=== PATIENT | female | born 1945 | race African-American/Black ===

== ENCOUNTER 2021-06-08 18:55 | Inpatient (IN) | payer MEDICARE, BC ==
[~2021-06-08] VITALS: Ht 170.2 cm; Wt 59.6 kg
[2021-06-08 19:53] LABS: Eosinophils # (auto) 0.1 10 ^3/uL (0-0.8); Mean Corpuscular Hgb Conc. 34.2 g/dL (32.0-36.0)
[2021-06-08 19:55] LABS: Basophils # (auto) 0.1 10 ^3/uL (0-0.2); Basophils % (auto) 0.5 % (0.0-2.0); Hematocrit 31.1 % (36.0-46.0); Hemoglobin 10.6 g/dL (12.2-16.2); Lymphocytes # (auto) 1.7 10 ^3/uL (0.4-5.4); Lymphocytes % (auto) 14.9 % (10.0-50.0); Mean Corpuscular Hemoglobin 26.9 pg (28.0-32.0); Mean Corpuscular Volume 78.5 fL (80.0-100.0); Monocytes # (auto) 0.6 10 ^3/uL (0-1.3); Neutrophils # (auto) 8.8 10 ^3/uL (1.6-8.6); Neutrophils % (auto) 78.6 % (37.0-80.0); Red Blood Cells 3.96 10^6/uL (4.0-5.20); Red Cell Distribution Width 14.8 % (11.8-14.3); White Blood Cell 11.2 10^3/uL (4.4-10.8)
[2021-06-08 20:07] LABS: Albumin 2.8 g/dL (3.4-5.0); BUN/Creatinine Ratio 3.7; Calcium 9.3 mg/dL (8.5-10.1); Magnesium 2.6 mg/dL (1.6-2.6); Potassium 3.3 mmol/L (3.5-5.1)
[2021-06-08 20:15] LABS: Bilirubin, Total 0.4 mg/dL (0.2-1.0); Total Protein 6.6 g/dL (6.4-8.2)
[2021-06-08] MEDS ORDERED: SODIUM CHLORIDE 0.9% 1,000 ML IVB ONE (21:15)
[2021-06-08] MEDS ORDERED: ONDANSETRON HCL 4 MG/2 ML VIAL IV ONE (21:15)
[2021-06-08] MEDS ORDERED: POTASSIUM CHL 20 Meq TABLET PO ONE (22:30)
[2021-06-08] MEDS ORDERED: ACETAMINOPHEN 325 MG TAB PO PRN (22:30)
[2021-06-08 22:59] LABS: INR 0.97 (0.9-1.15); Partial Thromboplastin Time 24.5 sec (23.0-31.2)
[2021-06-09 05:00] VITALS: BP 116/70
[2021-06-09 05:55] LABS: Basophils # (auto) 0 10 ^3/uL (0-0.2); Basophils % (auto) 0.3 % (0.0-2.0); Eosinophils # (auto) 0.2 10 ^3/uL (0-0.8); Eosinophils % (auto) 2.3 % (0.0-7.0); Hematocrit 26.3 % (36.0-46.0); Hemoglobin 9.3 g/dL (12.2-16.2); Lymphocytes # (auto) 2.7 10 ^3/uL (0.4-5.4); Lymphocytes % (auto) 26.3 % (10.0-50.0); Mean Corpuscular Hemoglobin 27.5 pg (28.0-32.0); Mean Corpuscular Hgb Conc. 35.2 g/dL (32.0-36.0); Mean Corpuscular Volume 78.2 fL (80.0-100.0); Monocytes # (auto) 0.8 10 ^3/uL (0-1.3); Monocytes % (auto) 7.5 % (0.0-12.0); Neutrophils # (auto) 6.6 10 ^3/uL (1.6-8.6); Neutrophils % (auto) 63.6 % (37.0-80.0); Red Blood Cells 3.37 10^6/uL (4.0-5.20); Red Cell Distribution Width 14.5 % (11.8-14.3); White Blood Cell 10.4 10^3/uL (4.4-10.8)
[2021-06-09] MEDS ORDERED: metroNIDAZOLE 500MG/100ML 100 ML IV SCH (06:00)
[2021-06-09 06:19] LABS: Albumin 2.4 g/dL (3.4-5.0); Calcium 9.1 mg/dL (8.5-10.1); Potassium 3.6 mmol/L (3.5-5.1)
[2021-06-09 06:21] LABS: BUN/Creatinine Ratio 3.9
[2021-06-09 06:24] LABS: Bilirubin, Total 0.4 mg/dL (0.2-1.0); Total Protein 5.8 g/dL (6.4-8.2)
[2021-06-09 09:00] VITALS: BP 98/54
[2021-06-09] MEDS: APIXABAN 2.5 MG TAB PO SCH ×2 (10:13→22:02)
[2021-06-09] MEDS: CARVEDILOL 3.125 MG TAB PO SCH ×2 (10:14→22:05)
[2021-06-09] MEDS: amLODIPine BESYLATE 5 MG TAB PO SCH (10:14)
[2021-06-09] MEDS: PANTOPRAZOLE 40 MG TAB PO SCH (10:14)
[2021-06-09] MEDS ORDERED: levoFLOXacin 250MG 50 ML IV SCH (10:30)
[2021-06-09] MEDS ORDERED: levoFLOXacin 500MG 100 ML IV ONE (11:00)
[2021-06-09] MEDS: SUCRALFATE 1 GM/10 ML ORAL SUSP PO SCH ×3 (11:21→22:02)
[2021-06-09 12:31] VITALS: BP 104/60
[2021-06-09 12:32] LABS: Urine Bacteria NONE SEEN /hpf (None Seen); Urine Blood Negative /uL (Negative); Urine Specific Gravity 1.015 (1.001-1.035); Urine WBC 10 /hpf (0 - 5)
[2021-06-09] MEDS: Ensure HIGH Protein Chocolate 8oz Bottle PO SCH ×2 (13:00→17:33)
[2021-06-09] MEDS: ONDANSETRON HCL 4 MG/2 ML VIAL IV PRN ×2 (13:16→20:15)
[2021-06-09] MEDS: HYDROcodone-ACET 5/325MG TAB PO PRN ×2 (13:16→20:15)
[2021-06-09] MEDS: metroNIDAZOLE 500MG/100ML 100 ML IV SCH ×2 (13:16→22:02)
[2021-06-09 16:54] VITALS: BP 117/57
[2021-06-09] MEDS ORDERED: DOCU100C10 PO (19:04)
[2021-06-09] MEDS ORDERED: CINA30TA14 PO (19:04)
[2021-06-09] MEDS ORDERED: PANT40TA2 PO (19:04)
[2021-06-09] MEDS ORDERED: CITA10TA8 PO (19:04)
[2021-06-09] MEDS ORDERED: EZET10TA22 PO (19:04)
[2021-06-09] MEDS ORDERED: CARV6.2551 PO (19:04)
[2021-06-09] MEDS ORDERED: APIX2.5T PO (19:04)
[2021-06-09] MEDS ORDERED: DRON400T PO (19:04)
[2021-06-09] MEDS ORDERED: BEMP1TAB PO (19:04)
[2021-06-09] MEDS ORDERED: CALC0.5C PO (19:04)
[2021-06-09] MEDS ORDERED: AMLO-496 PO (19:04)
[2021-06-09] MEDS ORDERED: NALO1TAB PO (19:04)
[2021-06-09] MEDS ORDERED: HYDR-4798 PO (19:04)
[2021-06-09 20:00] VITALS: BP 108/63
[2021-06-09 22:00] VITALS: BP 107/62
[2021-06-09] MEDS: ATORVASTATIN 20 MG TAB PO SCH (22:02)
[2021-06-10 05:00] VITALS: BP 100/55
[2021-06-10 05:08] LABS: Basophils # (auto) 0 10 ^3/uL (0-0.2); Basophils % (auto) 0.4 % (0.0-2.0); Eosinophils # (auto) 0.3 10 ^3/uL (0-0.8); Eosinophils % (auto) 3.2 % (0.0-7.0); Hematocrit 23.8 % (36.0-46.0); Hemoglobin 8.5 g/dL (12.2-16.2); Lymphocytes # (auto) 2.5 10 ^3/uL (0.4-5.4); Lymphocytes % (auto) 29.7 % (10.0-50.0); Mean Corpuscular Hemoglobin 27.8 pg (28.0-32.0); Mean Corpuscular Hgb Conc. 35.5 g/dL (32.0-36.0); Mean Corpuscular Volume 78.3 fL (80.0-100.0); Monocytes # (auto) 0.7 10 ^3/uL (0-1.3); Neutrophils % (auto) 58.7 % (37.0-80.0); Red Blood Cells 3.04 10^6/uL (4.0-5.20); Red Cell Distribution Width 14.8 % (11.8-14.3); White Blood Cell 8.5 10^3/uL (4.4-10.8)
[2021-06-10 05:29] LABS: Albumin 2.3 g/dL (3.4-5.0); BUN/Creatinine Ratio 4.2; Calcium 8.7 mg/dL (8.5-10.1); Potassium 3.6 mmol/L (3.5-5.1)
[2021-06-10 05:32] LABS: Bilirubin, Total 0.4 mg/dL (0.2-1.0); Total Protein 5.5 g/dL (6.4-8.2)
[2021-06-10] MEDS: metroNIDAZOLE 500MG/100ML 100 ML IV SCH ×3 (05:46→21:13)
[2021-06-10] MEDS: SUCRALFATE 1 GM/10 ML ORAL SUSP PO SCH ×4 (06:44→21:13)
[2021-06-10 08:55] VITALS: BP 127/83
[2021-06-10] MEDS: Ensure HIGH Protein Chocolate 8oz Bottle PO SCH ×3 (09:36→17:59)
[2021-06-10] MEDS: levoFLOXacin 250MG 50 ML IV SCH (09:36)
[2021-06-10] MEDS: APIXABAN 2.5 MG TAB PO SCH ×2 (09:37→21:13)
[2021-06-10] MEDS: CARVEDILOL 3.125 MG TAB PO SCH ×2 (09:37→21:14)
[2021-06-10] MEDS: PANTOPRAZOLE 40 MG TAB PO SCH ×2 (09:38→21:14)
[2021-06-10] MEDS: amLODIPine BESYLATE 5 MG TAB PO SCH (09:39)
[2021-06-10] MEDS: ONDANSETRON HCL 4 MG/2 ML VIAL IV PRN ×2 (09:40→16:17)
[2021-06-10] MEDS: HYDROcodone-ACET 5/325MG TAB PO PRN ×3 (09:40→21:15)
[2021-06-10 12:38] VITALS: BP 131/72
[2021-06-10] MEDS ORDERED: LIDOCAINE 1% HCL (LOCAL ANESTH.) INJ 20ML MDV ONE (12:43)
[2021-06-10 16:40] VITALS: BP 124/63
[2021-06-10] MEDS: ATORVASTATIN 20 MG TAB PO SCH (21:14)
[2021-06-10 22:00] VITALS: BP 102/55
[2021-06-10] MEDS: TEMAZEPAM 15 MG CAP PO PRN (22:44)
[2021-06-11 05:00] VITALS: BP 105/62
[2021-06-11 05:28] LABS: Basophils # (auto) 0 10 ^3/uL (0-0.2); Basophils % (auto) 0.5 % (0.0-2.0); Eosinophils # (auto) 0.3 10 ^3/uL (0-0.8); Eosinophils % (auto) 3.5 % (0.0-7.0); Hematocrit 23.8 % (36.0-46.0); Hemoglobin 8.2 g/dL (12.2-16.2); Lymphocytes # (auto) 2.3 10 ^3/uL (0.4-5.4); Lymphocytes % (auto) 32.3 % (10.0-50.0); Mean Corpuscular Hemoglobin 27.2 pg (28.0-32.0); Mean Corpuscular Hgb Conc. 34.3 g/dL (32.0-36.0); Mean Corpuscular Volume 79.3 fL (80.0-100.0); Monocytes # (auto) 0.6 10 ^3/uL (0-1.3); Monocytes % (auto) 7.8 % (0.0-12.0); Neutrophils % (auto) 55.9 % (37.0-80.0); Nucleated Red Blood Cells % 0.1 %; Red Cell Distribution Width 14.8 % (11.8-14.3); White Blood Cell 7.2 10^3/uL (4.4-10.8)
[2021-06-11] MEDS: SUCRALFATE 1 GM/10 ML ORAL SUSP PO SCH ×4 (05:37→22:28)
[2021-06-11] MEDS: metroNIDAZOLE 500MG/100ML 100 ML IV SCH ×3 (05:37→22:27)
[2021-06-11 05:43] LABS: Potassium 3.6 mmol/L (3.5-5.1)
[2021-06-11 06:11] LABS: Albumin 1.9 g/dL (3.4-5.0); BUN/Creatinine Ratio 4.6; Bilirubin, Total 0.3 mg/dL (0.2-1.0); Calcium 8.5 mg/dL (8.5-10.1); Total Protein 5.3 g/dL (6.4-8.2)
[2021-06-11] MEDS ORDERED: SODIUM CHL 0.9% 1000 ML BAG XX ONE (07:00)
[2021-06-11] MEDS: Ensure HIGH Protein Chocolate 8oz Bottle PO SCH ×3 (08:00→18:18)
[2021-06-11 09:00] VITALS: BP 106/61
[2021-06-11] MEDS: PANTOPRAZOLE 40 MG TAB PO SCH ×2 (09:57→22:29)
[2021-06-11] MEDS: CARVEDILOL 3.125 MG TAB PO SCH ×2 (09:57→22:00)
[2021-06-11] MEDS: amLODIPine BESYLATE 5 MG TAB PO SCH (09:57)
[2021-06-11] MEDS: APIXABAN 2.5 MG TAB PO SCH ×2 (11:21→22:28)
[2021-06-11] MEDS: HYDROcodone-ACET 5/325MG TAB PO PRN ×2 (12:58→20:30)
[2021-06-11 13:00] VITALS: BP 138/70
[2021-06-11 17:00] VITALS: BP 122/72
[2021-06-11] MEDS ORDERED: EPOETIN ALFA-EPBX 4,000 UNIT/ML VIAL SC ONE (21:00)
[2021-06-11 22:00] VITALS: BP 124/59
[2021-06-11] MEDS: ATORVASTATIN 20 MG TAB PO SCH (22:28)
[2021-06-12] MEDS: TEMAZEPAM 15 MG CAP PO PRN ×2 (00:36→23:45)
[2021-06-12 05:00] VITALS: BP 107/60
[2021-06-12] MEDS: SUCRALFATE 1 GM/10 ML ORAL SUSP PO SCH ×4 (06:37→21:53)
[2021-06-12] MEDS: metroNIDAZOLE 500MG/100ML 100 ML IV SCH ×3 (06:37→21:52)
[2021-06-12] MEDS: Ensure HIGH Protein Chocolate 8oz Bottle PO SCH ×3 (08:00→17:54)
[2021-06-12] MEDS: PANTOPRAZOLE 40 MG TAB PO SCH ×2 (08:44→21:55)
[2021-06-12] MEDS: APIXABAN 2.5 MG TAB PO SCH ×2 (08:44→21:55)
[2021-06-12] MEDS: amLODIPine BESYLATE 5 MG TAB PO SCH (08:44)
[2021-06-12] MEDS: CARVEDILOL 3.125 MG TAB PO SCH ×2 (08:44→21:54)
[2021-06-12] MEDS: levoFLOXacin 250MG 50 ML IV SCH (08:45)
[2021-06-12 09:00] VITALS: BP 121/63
[2021-06-12 09:19] LABS: Basophils # (auto) 0 10 ^3/uL (0-0.2); Basophils % (auto) 0.5 % (0.0-2.0); Eosinophils # (auto) 0.2 10 ^3/uL (0-0.8); Lymphocytes # (auto) 1.6 10 ^3/uL (0.4-5.4); Monocytes # (auto) 0.7 10 ^3/uL (0-1.3)
[2021-06-12 09:20] LABS: Eosinophils % (auto) 2.7 % (0.0-7.0); Hematocrit 24.7 % (36.0-46.0); Hemoglobin 8.3 g/dL (12.2-16.2); Lymphocytes % (auto) 24.8 % (10.0-50.0); Mean Corpuscular Hemoglobin 26.6 pg (28.0-32.0); Mean Corpuscular Hgb Conc. 33.7 g/dL (32.0-36.0); Monocytes % (auto) 10.9 % (0.0-12.0); Neutrophils % (auto) 61.1 % (37.0-80.0); Red Blood Cells 3.12 10^6/uL (4.0-5.20); Red Cell Distribution Width 14.6 % (11.8-14.3); White Blood Cell 6.5 10^3/uL (4.4-10.8)
[2021-06-12 09:32] LABS: Albumin 1.8 g/dL (3.4-5.0); Potassium 3.4 mmol/L (3.5-5.1)
[2021-06-12 09:36] LABS: BUN/Creatinine Ratio 3.5; Bilirubin, Total 0.3 mg/dL (0.2-1.0); Total Protein 5.2 g/dL (6.4-8.2)
[2021-06-12] MEDS ORDERED: POTASSIUM EFFERVESENT TAB 25 MEQ PO ONE (11:45)
[2021-06-12 12:56] VITALS: BP 115/77
[2021-06-12] MEDS: HYDROcodone-ACET 5/325MG TAB PO PRN ×2 (16:34→22:52)
[2021-06-12 16:51] VITALS: BP 108/69
[2021-06-12] MEDS: ATORVASTATIN 20 MG TAB PO SCH (21:55)
[2021-06-12 22:00] VITALS: BP 114/65
[2021-06-13] MEDS: HYDROcodone-ACET 5/325MG TAB PO PRN ×2 (04:58→22:11)
[2021-06-13 05:00] VITALS: BP 127/60
[2021-06-13 06:13] LABS: Basophils # (auto) 0 10 ^3/uL (0-0.2); Basophils % (auto) 0.6 % (0.0-2.0); Eosinophils # (auto) 0.3 10 ^3/uL (0-0.8); Eosinophils % (auto) 3.1 % (0.0-7.0); Hematocrit 26.2 % (36.0-46.0); Lymphocytes # (auto) 2.3 10 ^3/uL (0.4-5.4); Lymphocytes % (auto) 27.8 % (10.0-50.0); Mean Corpuscular Hemoglobin 27.2 pg (28.0-32.0); Mean Corpuscular Hgb Conc. 34.2 g/dL (32.0-36.0); Mean Corpuscular Volume 79.6 fL (80.0-100.0); Monocytes # (auto) 0.9 10 ^3/uL (0-1.3); Monocytes % (auto) 10.7 % (0.0-12.0); Neutrophils # (auto) 4.7 10 ^3/uL (1.6-8.6); Neutrophils % (auto) 57.8 % (37.0-80.0); White Blood Cell 8.1 10^3/uL (4.4-10.8)
[2021-06-13] MEDS: metroNIDAZOLE 500MG/100ML 100 ML IV SCH (06:20)
[2021-06-13 06:26] LABS: BUN/Creatinine Ratio 3.9; Calcium 8.7 mg/dL (8.5-10.1); Potassium 3.6 mmol/L (3.5-5.1)
[2021-06-13] MEDS: SUCRALFATE 1 GM/10 ML ORAL SUSP PO SCH ×4 (07:14→21:59)
[2021-06-13] MEDS: Ensure HIGH Protein Chocolate 8oz Bottle PO SCH ×3 (08:00→18:17)
[2021-06-13 09:00] VITALS: BP 129/57
[2021-06-13] MEDS: ONDANSETRON HCL 4 MG/2 ML VIAL IV PRN (09:46)
[2021-06-13] MEDS: CARVEDILOL 3.125 MG TAB PO SCH ×2 (09:48→22:00)
[2021-06-13] MEDS: amLODIPine BESYLATE 5 MG TAB PO SCH (09:48)
[2021-06-13] MEDS: PANTOPRAZOLE 40 MG TAB PO SCH ×2 (09:48→22:00)
[2021-06-13] MEDS: APIXABAN 2.5 MG TAB PO SCH ×2 (09:48→22:00)
[2021-06-13] MEDS ORDERED: CITALOPRAM HYDROBR 20 MG TAB PO ONE (11:30)
[2021-06-13 12:30] VITALS: BP 140/64
[2021-06-13 17:00] VITALS: BP 130/71
[2021-06-13] MEDS: ATORVASTATIN 20 MG TAB PO SCH (22:00)
[2021-06-13 22:16] VITALS: BP 137/73
[2021-06-13] MEDS: TEMAZEPAM 15 MG CAP PO PRN (23:35)
[2021-06-14 05:18] VITALS: BP 130/72
[2021-06-14] MEDS: SUCRALFATE 1 GM/10 ML ORAL SUSP PO SCH ×4 (06:24→22:10)
[2021-06-14 06:36] LABS: Basophils # (auto) 0.1 10 ^3/uL (0-0.2); Basophils % (auto) 0.7 % (0.0-2.0); Eosinophils # (auto) 0.2 10 ^3/uL (0-0.8); Eosinophils % (auto) 3.2 % (0.0-7.0); Hematocrit 25.9 % (36.0-46.0); Hemoglobin 8.8 g/dL (12.2-16.2); Lymphocytes # (auto) 2.4 10 ^3/uL (0.4-5.4); Lymphocytes % (auto) 31.4 % (10.0-50.0); Mean Corpuscular Hemoglobin 27.4 pg (28.0-32.0); Mean Corpuscular Hgb Conc. 34.2 g/dL (32.0-36.0); Mean Corpuscular Volume 80.3 fL (80.0-100.0); Monocytes # (auto) 0.7 10 ^3/uL (0-1.3); Monocytes % (auto) 8.5 % (0.0-12.0); Neutrophils # (auto) 4.4 10 ^3/uL (1.6-8.6); Neutrophils % (auto) 56.2 % (37.0-80.0); Nucleated Red Blood Cells % 0.1 %; Red Blood Cells 3.22 10^6/uL (4.0-5.20); Red Cell Distribution Width 15.5 % (11.8-14.3); White Blood Cell 7.8 10^3/uL (4.4-10.8)
[2021-06-14] MEDS ORDERED: SODIUM CHL 0.9% 1000 ML BAG XX ONE (07:00)
[2021-06-14 09:00] VITALS: BP 123/72
[2021-06-14] MEDS: levoFLOXacin 250MG 50 ML IV SCH (09:10)
[2021-06-14] MEDS: PANTOPRAZOLE 40 MG TAB PO SCH (09:10)
[2021-06-14] MEDS: amLODIPine BESYLATE 5 MG TAB PO SCH (09:11)
[2021-06-14] MEDS: APIXABAN 2.5 MG TAB PO SCH (09:11)
[2021-06-14] MEDS: CITALOPRAM HYDROBR 20 MG TAB PO SCH (09:11)
[2021-06-14] MEDS: CARVEDILOL 3.125 MG TAB PO SCH ×2 (09:11→22:11)
[2021-06-14] MEDS: Ensure HIGH Protein Chocolate 8oz Bottle PO SCH ×3 (09:12→18:40)
[2021-06-14] MEDS: ONDANSETRON HCL 4 MG/2 ML VIAL IV PRN (09:34)
[2021-06-14] MEDS ORDERED: PANTOPRAZOLE 40 MG/10 ML VIAL INJ IV ONE (11:45)
[2021-06-14] MEDS: METOCLOPRAMIDE HCL 5MG/ml INJ 2ml VIAL IV SCH ×3 (11:57→22:09)
[2021-06-14 12:30] VITALS: BP 120/64
[2021-06-14 17:00] VITALS: BP 131/53
[2021-06-14] MEDS ORDERED: EPOETIN ALFA-EPBX 4,000 UNIT/ML VIAL SC ONE (21:00)
[2021-06-14 22:00] VITALS: BP 125/63
[2021-06-14] MEDS: ATORVASTATIN 20 MG TAB PO SCH (22:10)
[2021-06-14] MEDS: HYDROcodone-ACET 5/325MG TAB PO PRN (22:10)
[2021-06-14] MEDS: TEMAZEPAM 15 MG CAP PO PRN (23:26)
[2021-06-15 05:00] VITALS: BP 132/68
[2021-06-15] MEDS: METOCLOPRAMIDE HCL 5MG/ml INJ 2ml VIAL IV SCH (07:18)
[2021-06-15] MEDS: SUCRALFATE 1 GM/10 ML ORAL SUSP PO SCH ×4 (07:18→21:51)
[2021-06-15] MEDS: PANTOPRAZOLE 40 MG/10 ML VIAL INJ IV SCH (08:35)
[2021-06-15] MEDS: CITALOPRAM HYDROBR 20 MG TAB PO SCH (08:36)
[2021-06-15] MEDS: amLODIPine BESYLATE 5 MG TAB PO SCH (08:36)
[2021-06-15] MEDS: Ensure HIGH Protein Chocolate 8oz Bottle PO SCH ×3 (08:39→17:27)
[2021-06-15] MEDS: CARVEDILOL 3.125 MG TAB PO SCH ×2 (08:39→21:52)
[2021-06-15 09:00] VITALS: BP 132/75
[2021-06-15 12:49] VITALS: BP 128/64
[2021-06-15] MEDS: METOCLOPRAMIDE HCL 10 MG TAB PO SCH ×2 (13:45→21:53)
[2021-06-15 17:23] VITALS: BP 101/42
[2021-06-15] MEDS: ATORVASTATIN 20 MG TAB PO SCH (21:52)
[2021-06-15] MEDS: HYDROcodone-ACET 5/325MG TAB PO PRN (21:53)
[2021-06-15 22:00] VITALS: BP 124/70
[2021-06-16 05:00] VITALS: BP 129/70
[2021-06-16] MEDS: METOCLOPRAMIDE HCL 10 MG TAB PO SCH (06:06)
[2021-06-16] MEDS: SUCRALFATE 1 GM/10 ML ORAL SUSP PO SCH ×4 (06:06→22:00)
[2021-06-16 06:46] LABS: Basophils # (auto) 0.1 10 ^3/uL (0-0.2); Basophils % (auto) 0.7 % (0.0-2.0); Eosinophils # (auto) 0.3 10 ^3/uL (0-0.8); Eosinophils % (auto) 3.3 % (0.0-7.0); Hematocrit 27.7 % (36.0-46.0); Hemoglobin 9.5 g/dL (12.2-16.2); Lymphocytes # (auto) 2.6 10 ^3/uL (0.4-5.4); Lymphocytes % (auto) 30.9 % (10.0-50.0); Mean Corpuscular Hemoglobin 27.6 pg (28.0-32.0); Mean Corpuscular Hgb Conc. 34.2 g/dL (32.0-36.0); Mean Corpuscular Volume 80.6 fL (80.0-100.0); Monocytes # (auto) 0.8 10 ^3/uL (0-1.3); Monocytes % (auto) 8.9 % (0.0-12.0); Neutrophils # (auto) 4.8 10 ^3/uL (1.6-8.6); Neutrophils % (auto) 56.2 % (37.0-80.0); Nucleated Red Blood Cells % 0.1 %; Red Blood Cells 3.43 10^6/uL (4.0-5.20); Red Cell Distribution Width 15.3 % (11.8-14.3); White Blood Cell 8.5 10^3/uL (4.4-10.8)
[2021-06-16] MEDS ORDERED: SODIUM CHL 0.9% 1000 ML BAG XX ONE (07:00)
[2021-06-16] MEDS: Ensure HIGH Protein Chocolate 8oz Bottle PO SCH ×3 (08:47→18:07)
[2021-06-16 09:00] VITALS: BP 130/71
[2021-06-16] MEDS: amLODIPine BESYLATE 5 MG TAB PO SCH (10:00)
[2021-06-16] MEDS: CARVEDILOL 3.125 MG TAB PO SCH ×2 (10:00→22:00)
[2021-06-16] MEDS: levoFLOXacin 250MG 50 ML IV SCH (10:12)
[2021-06-16] MEDS: CITALOPRAM HYDROBR 20 MG TAB PO SCH (10:13)
[2021-06-16] MEDS: PANTOPRAZOLE 40 MG/10 ML VIAL INJ IV SCH (10:13)
[2021-06-16 13:00] VITALS: BP 146/66
[2021-06-16] MEDS: METOCLOPRAMIDE HCL 5MG/ml INJ 2ml VIAL IV SCH ×2 (16:24→22:25)
[2021-06-16 17:00] VITALS: BP 136/71
[2021-06-16] MEDS ORDERED: EPOETIN ALFA-EPBX 4,000 UNIT/ML VIAL SC ONE (21:00)
[2021-06-16 22:00] VITALS: BP 126/79
[2021-06-16] MEDS: ATORVASTATIN 20 MG TAB PO SCH (22:25)
[2021-06-16] MEDS: HYDROcodone-ACET 5/325MG TAB PO PRN (23:22)
[2021-06-17] MEDS: TEMAZEPAM 15 MG CAP PO PRN (01:06)
[2021-06-17 05:10] VITALS: BP 123/71
[2021-06-17] MEDS: METOCLOPRAMIDE HCL 5MG/ml INJ 2ml VIAL IV SCH (06:33)
[2021-06-17] MEDS: SUCRALFATE 1 GM/10 ML ORAL SUSP PO SCH ×4 (06:34→23:08)
[2021-06-17] MEDS ORDERED: LIDOCAINE VISCOUS 2% 15ML UD ONE (08:16)
[2021-06-17] MEDS ORDERED: MIDAZOLAM HCL 5 MG/ML-1ML VIAL ONE (08:17)
[2021-06-17] MEDS ORDERED: diphenhdrAMINE HCL 50 MG/1 ML VL ONE (08:17)
[2021-06-17] MEDS ORDERED: fentaNYL CITRATE 100 MCG/2 ML VL ONE (08:17)
[2021-06-17] MEDS: Ensure HIGH Protein Chocolate 8oz Bottle PO SCH ×3 (08:41→18:19)
[2021-06-17 09:00] VITALS: BP 145/90
[2021-06-17 10:54] VITALS: BP 130/78
[2021-06-17] MEDS: CITALOPRAM HYDROBR 20 MG TAB PO SCH (10:57)
[2021-06-17] MEDS: amLODIPine BESYLATE 5 MG TAB PO SCH (10:58)
[2021-06-17] MEDS: PANTOPRAZOLE 40 MG/10 ML VIAL INJ IV SCH (10:58)
[2021-06-17] MEDS: CARVEDILOL 3.125 MG TAB PO SCH ×2 (10:59→22:00)
[2021-06-17 13:00] VITALS: BP 132/80
[2021-06-17] MEDS: METOCLOPRAMIDE HCL 10 MG TAB PO SCH ×2 (16:54→23:09)
[2021-06-17 17:00] VITALS: BP 128/66
[2021-06-17] MEDS: HYDROcodone-ACET 5/325MG TAB PO PRN (20:50)
[2021-06-17 22:00] VITALS: BP 133/69
[2021-06-17] MEDS: APIXABAN 2.5 MG TAB PO SCH (23:08)
[2021-06-17] MEDS: ATORVASTATIN 20 MG TAB PO SCH (23:09)
[2021-06-18 05:00] VITALS: BP 134/65
[2021-06-18] MEDS: METOCLOPRAMIDE HCL 10 MG TAB PO SCH ×4 (06:49→21:05)
[2021-06-18] MEDS: SUCRALFATE 1 GM/10 ML ORAL SUSP PO SCH ×5 (06:49→21:05)
[2021-06-18 08:00] VITALS: BP 135/82
[2021-06-18] MEDS: Ensure HIGH Protein Chocolate 8oz Bottle PO SCH ×3 (08:00→17:49)
[2021-06-18 09:00] VITALS: BP 135/82
[2021-06-18] MEDS: CITALOPRAM HYDROBR 20 MG TAB PO SCH (09:40)
[2021-06-18] MEDS: levoFLOXacin 250MG 50 ML IV SCH (09:46)
[2021-06-18] MEDS: CARVEDILOL 3.125 MG TAB PO SCH ×2 (09:49→21:20)
[2021-06-18] MEDS: PANTOPRAZOLE 40 MG TAB PO SCH (09:50)
[2021-06-18] MEDS: amLODIPine BESYLATE 5 MG TAB PO SCH (09:50)
[2021-06-18] MEDS: APIXABAN 2.5 MG TAB PO SCH ×2 (09:50→21:05)
[2021-06-18 13:00] VITALS: BP 122/75
[2021-06-18 17:00] VITALS: BP 111/75
[2021-06-18] MEDS: HYDROcodone-ACET 5/325MG TAB PO PRN (19:45)
[2021-06-18] MEDS ORDERED: EPOETIN ALFA-EPBX 4,000 UNIT/ML VIAL IV ONE (21:00)
[2021-06-18] MEDS: ATORVASTATIN 20 MG TAB PO SCH (21:06)
[2021-06-18 22:00] VITALS: BP_SYST 116; BP_SYST 119; BP_DIAS 69; BP_DIAS 70
[2021-06-18] MEDS: TEMAZEPAM 15 MG CAP PO PRN (23:38)
[2021-06-19 05:00] VITALS: BP 124/68
[2021-06-19 05:37] LABS: Basophils # (auto) 0.1 10 ^3/uL (0-0.2); Basophils % (auto) 0.8 % (0.0-2.0); Eosinophils # (auto) 0.3 10 ^3/uL (0-0.8); Eosinophils % (auto) 3.2 % (0.0-7.0); Hematocrit 27.2 % (36.0-46.0); Hemoglobin 9.3 g/dL (12.2-16.2); Lymphocytes # (auto) 2.3 10 ^3/uL (0.4-5.4); Lymphocytes % (auto) 28.5 % (10.0-50.0); Mean Corpuscular Hemoglobin 27.8 pg (28.0-32.0); Mean Corpuscular Hgb Conc. 34.1 g/dL (32.0-36.0); Mean Corpuscular Volume 81.6 fL (80.0-100.0); Monocytes # (auto) 0.8 10 ^3/uL (0-1.3); Monocytes % (auto) 9.7 % (0.0-12.0); Neutrophils # (auto) 4.7 10 ^3/uL (1.6-8.6); Neutrophils % (auto) 57.8 % (37.0-80.0); Red Blood Cells 3.33 10^6/uL (4.0-5.20); Red Cell Distribution Width 16.5 % (11.8-14.3); White Blood Cell 8.2 10^3/uL (4.4-10.8)
[2021-06-19 06:02] LABS: Potassium 3.6 mmol/L (3.5-5.1)
[2021-06-19] MEDS: METOCLOPRAMIDE HCL 10 MG TAB PO SCH ×4 (06:06→22:00)
[2021-06-19] MEDS: SUCRALFATE 1 GM/10 ML ORAL SUSP PO SCH ×4 (06:06→22:00)
[2021-06-19 06:20] LABS: BUN/Creatinine Ratio 3.7; Calcium 8.7 mg/dL (8.5-10.1)
[2021-06-19] MEDS: Ensure HIGH Protein Chocolate 8oz Bottle PO SCH ×3 (08:00→18:00)
[2021-06-19] MEDS: APIXABAN 2.5 MG TAB PO SCH ×2 (08:40→22:00)
[2021-06-19] MEDS: PANTOPRAZOLE 40 MG TAB PO SCH (08:40)
[2021-06-19] MEDS: CITALOPRAM HYDROBR 20 MG TAB PO SCH (08:40)
[2021-06-19] MEDS: CARVEDILOL 3.125 MG TAB PO SCH ×2 (08:53→22:00)
[2021-06-19] MEDS: amLODIPine BESYLATE 5 MG TAB PO SCH (08:53)
[2021-06-19 09:00] VITALS: BP 129/68
[2021-06-19 13:00] VITALS: BP 114/70
[2021-06-19 17:00] VITALS: BP 119/76
[2021-06-19 20:00] VITALS: BP 134/65
[2021-06-19 22:00] VITALS: BP 134/65
[2021-06-19] MEDS: ATORVASTATIN 20 MG TAB PO SCH (22:00)
[2021-06-19] MEDS: TEMAZEPAM 15 MG CAP PO PRN (22:30)
[2021-06-20 05:00] VITALS: BP 98/51
[2021-06-20] MEDS: METOCLOPRAMIDE HCL 10 MG TAB PO SCH ×3 (05:56→16:44)
[2021-06-20] MEDS: SUCRALFATE 1 GM/10 ML ORAL SUSP PO SCH ×3 (05:56→16:44)
[2021-06-20 06:01] LABS: Basophils # (auto) 0.1 10 ^3/uL (0-0.2); Basophils % (auto) 0.6 % (0.0-2.0); Eosinophils # (auto) 0.3 10 ^3/uL (0-0.8); Eosinophils % (auto) 3.6 % (0.0-7.0); Hematocrit 26.5 % (36.0-46.0); Lymphocytes # (auto) 2.5 10 ^3/uL (0.4-5.4); Lymphocytes % (auto) 27.8 % (10.0-50.0); Mean Corpuscular Hemoglobin 27.7 pg (28.0-32.0); Mean Corpuscular Hgb Conc. 34.1 g/dL (32.0-36.0); Mean Corpuscular Volume 81.2 fL (80.0-100.0); Monocytes # (auto) 0.9 10 ^3/uL (0-1.3); Neutrophils # (auto) 5.2 10 ^3/uL (1.6-8.6); Red Blood Cells 3.26 10^6/uL (4.0-5.20); Red Cell Distribution Width 16.5 % (11.8-14.3); White Blood Cell 9.1 10^3/uL (4.4-10.8)
[2021-06-20 06:23] LABS: Potassium 3.4 mmol/L (3.5-5.1)
[2021-06-20 06:36] LABS: BUN/Creatinine Ratio 3.8; Calcium 8.4 mg/dL (8.5-10.1)
[2021-06-20 06:39] LABS: Bilirubin, Total 0.2 mg/dL (0.2-1.0); Total Protein 5.2 g/dL (6.4-8.2)
[2021-06-20 08:00] VITALS: BP 134/65
[2021-06-20] MEDS: Ensure HIGH Protein Chocolate 8oz Bottle PO SCH ×3 (08:00→18:20)
[2021-06-20 09:00] VITALS: BP 136/59
[2021-06-20] MEDS: CITALOPRAM HYDROBR 20 MG TAB PO SCH (09:20)
[2021-06-20] MEDS: CARVEDILOL 3.125 MG TAB PO SCH (09:20)
[2021-06-20] MEDS: levoFLOXacin 250MG 50 ML IV SCH (09:20)
[2021-06-20] MEDS: PANTOPRAZOLE 40 MG TAB PO SCH (09:21)
[2021-06-20] MEDS: APIXABAN 2.5 MG TAB PO SCH (09:21)
[2021-06-20] MEDS: amLODIPine BESYLATE 5 MG TAB PO SCH (09:21)
[2021-06-20] MEDS: HYDROcodone-ACET 5/325MG TAB PO PRN (09:22)
[2021-06-20 13:00] VITALS: BP 124/56
[2021-06-21] MEDS ORDERED: SODIUM CHL 0.9% 1000 ML BAG XX ONE (07:00)
[2021-06-21] MEDS ORDERED: EPOETIN ALFA-EPBX 4,000 UNIT/ML VIAL SC ONE (21:00)
== END 2021-06-20 19:10 | disposition home or self-care (01) | DRG 356 ==
LOC: ER 18:56 → OVERFLOW 22:20 → WEST WING 23:41
PROVIDERS: ADMIT Nurse Practitioner; ATTEND Internal Medicine
PROC: 0W9F0ZZ Drainage of Abdominal Wall, Open Approach (ICD-10-PCS; principal; 2021-06-11)
PROC: 5A1D70Z Performance of Urinary Filtration, Intermittent, Less than 6 Hours Per Day (ICD-10-PCS; 2021-06-11)
PROC: 5A1D70Z Performance of Urinary Filtration, Intermittent, Less than 6 Hours Per Day (ICD-10-PCS; 2021-06-14)
PROC: 5A1D70Z Performance of Urinary Filtration, Intermittent, Less than 6 Hours Per Day (ICD-10-PCS; 2021-06-16)
PROC: 0DJ08ZZ Inspection of Upper Intestinal Tract, Via Natural or Artificial Opening Endoscopic (ICD-10-PCS; 2021-06-17)
PROC: 5A1D70Z Performance of Urinary Filtration, Intermittent, Less than 6 Hours Per Day (ICD-10-PCS; 2021-06-18)
DX: K29.80 Duodenitis without bleeding (principal); N18.6 End stage renal disease; L02.211 Cutaneous abscess of abdominal wall; E87.1 Hypo-osmolality and hyponatremia; I12.0 Hypertensive chronic kidney disease with stage 5 chronic kidney disease or end stage renal disease; D68.69 Other thrombophilia; E44.1 Mild protein-calorie malnutrition; K29.70 Gastritis, unspecified, without bleeding; K31.84 Gastroparesis; E11.43 Type 2 diabetes mellitus with diabetic autonomic (poly)neuropathy; I48.91 Unspecified atrial fibrillation; E87.6 Hypokalemia; D63.1 Anemia in chronic kidney disease; N20.0 Calculus of kidney; D72.829 Elevated white blood cell count, unspecified; R12 Heartburn; Z20.822 Contact with and (suspected) exposure to COVID-19; E78.5 Hyperlipidemia, unspecified; E11.22 Type 2 diabetes mellitus with diabetic chronic kidney disease; F32.9 Major depressive disorder, single episode, unspecified; J43.8 Other emphysema; Z79.01 Long term (current) use of anticoagulants; Z68.21 Body mass index [BMI] 21.0-21.9, adult; Z79.899 Other long term (current) drug therapy; Z82.49 Family history of ischemic heart disease and other diseases of the circulatory system; Z83.3 Family history of diabetes mellitus; Z88.0 Allergy status to penicillin; Y92.89 Other specified places as the place of occurrence of the external cause; Z99.2 Dependence on renal dialysis
CPT/HCPCS: 36415; 43235; 71045; 74176; 80048; 80053; 81001; 82150; 83036; 83690; 83735; 84443; 85025; 85610; 85730; 86850; 86900; 86901; 87040; 87070; 87075; 87081; 87086; 87205; 87426; 90935; 93005; 96374; 97110; 97116; 97530; C9113; G0378; J1642; J1956; J2001; J2250; J2405; J3490

== ENCOUNTER 2021-07-29 13:13 | Inpatient (IN) | payer MEDICARE, BC ==
[~2021-07-29] VITALS: Ht 170.2 cm; Wt 54.1 kg
[~2021-07-29 13:13] MED LIST: AMLO-496 PO; APIX2.5T PO; BEMP1TAB PO; CALC0.5C PO; CARV6.2551 PO; CINA30TA3 PO; CITA10TA8 PO; DOCU100C10 PO; DRON400T PO; EZET10TA22 PO; HYDR-4798 PO; NALO1TAB PO; PANT40TA2 PO
[2021-07-29 14:18] LABS: Basophils # (auto) 0.1 10 ^3/uL (0-0.2); Eosinophils # (auto) 0 10 ^3/uL (0-0.8); Eosinophils % (auto) 0.2 % (0.0-7.0); Hemoglobin 10.3 g/dL (12.2-16.2); Neutrophils # (auto) 11.3 10 ^3/uL (1.6-8.6); White Blood Cell 13.6 10^3/uL (4.4-10.8)
[2021-07-29 14:20] LABS: Basophils % (auto) 0.5 % (0.0-2.0); Hematocrit 31.5 % (36.0-46.0); Lymphocytes # (auto) 1.4 10 ^3/uL (0.4-5.4); Mean Corpuscular Hemoglobin 26.2 pg (28.0-32.0); Mean Corpuscular Hgb Conc. 32.7 g/dL (32.0-36.0); Mean Corpuscular Volume 80.1 fL (80.0-100.0); Monocytes # (auto) 0.8 10 ^3/uL (0-1.3); Monocytes % (auto) 5.6 % (0.0-12.0); Neutrophils % (auto) 83.7 % (37.0-80.0); Red Blood Cells 3.93 10^6/uL (4.0-5.20); Red Cell Distribution Width 16.6 % (11.8-14.3)
[2021-07-29 14:36] LABS: Albumin 3.4 g/dL (3.4-5.0); Anion Gap 13 (5-15); Blood Urea Nitrogen 25 mg/dL (7-18); Calcium 10.1 mg/dL (8.5-10.1); Carbon Dioxide 29 mmol/L (21-32); Chloride 93 mmol/L (98-107); Glucose 184 mg/dL (74-106); Magnesium 2.9 mg/dL (1.6-2.6); Potassium 3.4 mmol/L (3.5-5.1); Sodium 135 mmol/L (136-145)
[2021-07-29 14:39] LABS: Lactic Acid w/Reflex 2.8 mmol/L (0.4-2.0)
[2021-07-29 14:41] LABS: Alanine Aminotransferase 10 U/L (13-56); Alkaline Phosphatase 36 U/L (45-117); Aspartate Aminotransferase 20 U/L (15-37); BUN/Creatinine Ratio 3.8; Bilirubin, Total 0.3 mg/dL (0.2-1.0); Creatine Kinase IFCC 193 U/L (26-192); GFR African American 8 mL/min; GFR Non-African American 6 mL/min
[2021-07-29] MEDS ORDERED: MORPHINE SULFATE INJECTION 2 MG/ML SYRG IV PRN (17:15)
[2021-07-29] MEDS ORDERED: ONDANSETRON HCL 4 MG/2 ML VIAL IV PRN (17:15)
[2021-07-29] MEDS ORDERED: VANCOMYCIN PER PHARMACY 0 MG IV SCH (17:15)
[2021-07-29] MEDS ORDERED: NITROGLYCERIN 0.4 MG SL TAB SL PRN (17:15)
[2021-07-29] MEDS ORDERED: ACETAMINOPHEN 500 MG TAB PO PRN (17:15)
[2021-07-29] MEDS ORDERED: HYDROcodone-ACET 5/325MG TAB PO PRN (17:15)
[2021-07-29] MEDS ORDERED: IOHEXOL 300 MG/ML 100ML BOTTLE IJ ONE (17:18)
[2021-07-29] MEDS ORDERED: VANCOMYCIN 1GM/250ML 250 ML IV ONE (18:00)
[2021-07-29] MEDS: levoFLOXacin 250MG 50 ML IV SCH (18:45)
[2021-07-29 20:15] VITALS: BP 131/67
[2021-07-29 21:44] VITALS: BP 131/67
[2021-07-29] MEDS: APIXABAN 2.5 MG TAB PO SCH (22:09)
[2021-07-29] MEDS: CARVEDILOL 3.125 MG TAB PO SCH (22:09)
[2021-07-29] MEDS: DRONEDARONE HCL 400 MG TAB PO SCH (22:09)
[2021-07-30] MEDS: MORPHINE SULFATE INJECTION 2 MG/ML SYRG IV PRN ×3 (00:17→20:07)
[2021-07-30 05:30] VITALS: BP 132/76
[2021-07-30 09:00] VITALS: BP 126/71
[2021-07-30] MEDS ORDERED: Ezetimibe (Zetia) 10 MG TAB PO SCH (10:00)
[2021-07-30] MEDS: EZETIMIBE 10 MG PO SCH (10:00)
[2021-07-30] MEDS: DRONEDARONE HCL 400 MG TAB PO SCH ×2 (10:00→21:42)
[2021-07-30] MEDS: CITALOPRAM HYDROBR 20 MG TAB PO SCH (10:45)
[2021-07-30] MEDS: APIXABAN 2.5 MG TAB PO SCH ×2 (10:45→21:41)
[2021-07-30] MEDS: CALCITRIOL 0.25 MCG CAP PO SCH (10:45)
[2021-07-30] MEDS: PANTOPRAZOLE 40 MG TAB PO SCH (10:45)
[2021-07-30] MEDS: CARVEDILOL 3.125 MG TAB PO SCH ×2 (10:46→21:40)
[2021-07-30] MEDS: amLODIPine BESYLATE 5 MG TAB PO SCH (10:47)
[2021-07-30 10:53] LABS: Basophils # (auto) 0.2 10 ^3/uL (0-0.2); Basophils % (auto) 1.3 % (0.0-2.0); Eosinophils # (auto) 0.2 10 ^3/uL (0-0.8); Eosinophils % (auto) 1.7 % (0.0-7.0); Hematocrit 32.6 % (36.0-46.0); Hemoglobin 10.6 g/dL (12.2-16.2); Lymphocytes # (auto) 1.8 10 ^3/uL (0.4-5.4); Lymphocytes % (auto) 13.6 % (10.0-50.0); Mean Corpuscular Hemoglobin 25.8 pg (28.0-32.0); Mean Corpuscular Hgb Conc. 32.6 g/dL (32.0-36.0); Mean Corpuscular Volume 79.2 fL (80.0-100.0); Monocytes # (auto) 0.7 10 ^3/uL (0-1.3); Monocytes % (auto) 5.2 % (0.0-12.0); Neutrophils # (auto) 10.2 10 ^3/uL (1.6-8.6); Neutrophils % (auto) 78.2 % (37.0-80.0); Red Blood Cells 4.12 10^6/uL (4.0-5.20); Red Cell Distribution Width 16.3 % (11.8-14.3)
[2021-07-30 12:03] LABS: Potassium 3.9 mmol/L (3.5-5.1)
[2021-07-30 12:15] LABS: Albumin 3.4 g/dL (3.4-5.0); BUN/Creatinine Ratio 4.5; Bilirubin, Total 0.4 mg/dL (0.2-1.0); Calcium 10.5 mg/dL (8.5-10.1); Total Protein 7.9 g/dL (6.4-8.2)
[2021-07-30 12:50] VITALS: BP 146/76
[2021-07-30] MEDS ORDERED: VANCOMYCIN 500 MG in D5W 5% 100 ML IV ONE (15:00)
[2021-07-30] MEDS ORDERED: LORazepam 2MG/ML-1ML VIAL IV PRN (15:15)
[2021-07-30 17:00] VITALS: BP 102/63
[2021-07-30] MEDS ORDERED: TEMA30CA PO (21:46)
[2021-07-30 22:00] VITALS: BP 128/74
[2021-07-30] MEDS ORDERED: TEMAZEPAM 15 MG CAP PO ONE (22:15)
[2021-07-31 05:00] VITALS: BP 126/58
[2021-07-31 09:00] VITALS: BP 113/72
[2021-07-31] MEDS: CARVEDILOL 3.125 MG TAB PO SCH ×2 (10:00→21:54)
[2021-07-31] MEDS: amLODIPine BESYLATE 5 MG TAB PO SCH (10:00)
[2021-07-31] MEDS: EZETIMIBE 10 MG PO SCH (10:00)
[2021-07-31] MEDS: CITALOPRAM HYDROBR 20 MG TAB PO SCH (10:41)
[2021-07-31] MEDS: PANTOPRAZOLE 40 MG TAB PO SCH (10:41)
[2021-07-31] MEDS: APIXABAN 2.5 MG TAB PO SCH ×2 (10:41→21:54)
[2021-07-31] MEDS: CALCITRIOL 0.25 MCG CAP PO SCH (10:42)
[2021-07-31] MEDS ORDERED: SODIUM CHL 0.9% 1000 ML BAG XX ONE (11:30)
[2021-07-31 11:48] LABS: Eosinophils # (auto) 0.3 10 ^3/uL (0-0.8); Monocytes # (auto) 0.8 10 ^3/uL (0-1.3)
[2021-07-31 11:51] LABS: Basophils # (auto) 0.1 10 ^3/uL (0-0.2); Basophils % (auto) 0.8 % (0.0-2.0); Eosinophils % (auto) 3.1 % (0.0-7.0); Hematocrit 28.9 % (36.0-46.0); Hemoglobin 9.5 g/dL (12.2-16.2); Mean Corpuscular Hemoglobin 26.7 pg (28.0-32.0); Mean Corpuscular Hgb Conc. 32.8 g/dL (32.0-36.0); Mean Corpuscular Volume 81.4 fL (80.0-100.0); Neutrophils # (auto) 6.7 10 ^3/uL (1.6-8.6); Neutrophils % (auto) 68.1 % (37.0-80.0); Nucleated Red Blood Cells % 0.3 %; Red Blood Cells 3.55 10^6/uL (4.0-5.20); Red Cell Distribution Width 16.8 % (11.8-14.3); White Blood Cell 9.9 10^3/uL (4.4-10.8)
[2021-07-31] MEDS: DRONEDARONE HCL 400 MG TAB PO SCH ×2 (12:48→21:55)
[2021-07-31 13:00] VITALS: BP 155/77
[2021-07-31 17:00] VITALS: BP 123/66
[2021-07-31] MEDS: levoFLOXacin 250MG 50 ML IV SCH (17:26)
[2021-07-31] MEDS ORDERED: EPOETIN ALFA-EPBX 10,000 UNIT/1ML VIAL SC ONE (21:00)
[2021-07-31] MEDS: MORPHINE SULFATE INJECTION 2 MG/ML SYRG IV PRN (21:55)
[2021-07-31 22:00] VITALS: BP 128/66
[2021-07-31] MEDS ORDERED: TEMAZEPAM 15 MG CAP PO PRN (22:00)
[2021-08-01] MEDS: MORPHINE SULFATE INJECTION 2 MG/ML SYRG IV PRN ×2 (04:23→09:40)
[2021-08-01 05:00] VITALS: BP 127/80
[2021-08-01 06:22] LABS: Basophils # (auto) 0 10 ^3/uL (0-0.2); Basophils % (auto) 0.6 % (0.0-2.0); Eosinophils # (auto) 0.3 10 ^3/uL (0-0.8); Eosinophils % (auto) 3.7 % (0.0-7.0); Hemoglobin 8.8 g/dL (12.2-16.2); Lymphocytes # (auto) 1.8 10 ^3/uL (0.4-5.4); Lymphocytes % (auto) 23.1 % (10.0-50.0); Mean Corpuscular Hemoglobin 27.1 pg (28.0-32.0); Mean Corpuscular Hgb Conc. 33.8 g/dL (32.0-36.0); Mean Corpuscular Volume 80.3 fL (80.0-100.0); Monocytes # (auto) 0.7 10 ^3/uL (0-1.3); Monocytes % (auto) 9.6 % (0.0-12.0); Neutrophils # (auto) 4.9 10 ^3/uL (1.6-8.6); Red Blood Cells 3.24 10^6/uL (4.0-5.20); Red Cell Distribution Width 16.7 % (11.8-14.3); White Blood Cell 7.8 10^3/uL (4.4-10.8)
[2021-08-01 08:56] VITALS: BP 118/69
[2021-08-01] MEDS: APIXABAN 2.5 MG TAB PO SCH (09:26)
[2021-08-01] MEDS: CITALOPRAM HYDROBR 20 MG TAB PO SCH (09:26)
[2021-08-01] MEDS: DRONEDARONE HCL 400 MG TAB PO SCH (09:27)
[2021-08-01] MEDS: CARVEDILOL 3.125 MG TAB PO SCH (09:27)
[2021-08-01] MEDS: CALCITRIOL 0.25 MCG CAP PO SCH (09:27)
[2021-08-01] MEDS: amLODIPine BESYLATE 5 MG TAB PO SCH (09:28)
[2021-08-01] MEDS: PANTOPRAZOLE 40 MG TAB PO SCH (09:28)
[2021-08-01 11:14] LABS: Folate (Folic Acid) > 24.00 ng/mL (5.38-24)
[2021-08-01] MEDS: EZETIMIBE 10 MG PO SCH (12:30)
[2021-08-01 13:00] VITALS: BP 136/80
[2021-08-01 13:38] VITALS: BP 136/80
== END 2021-08-01 14:40 | disposition home health service (06) | DRG 871 ==
LOC: ER 13:13 → TELE-WESTW 17:07
PROVIDERS: ADMIT Nurse Practitioner Acute Care; ATTEND Family Medicine
PROC: 5A1D70Z Performance of Urinary Filtration, Intermittent, Less than 6 Hours Per Day (ICD-10-PCS; principal; 2021-07-31)
DX: A41.9 Sepsis, unspecified organism (principal); G93.41 Metabolic encephalopathy; N18.6 End stage renal disease; K65.9 Peritonitis, unspecified; I13.2 Hypertensive heart and chronic kidney disease with heart failure and with stage 5 chronic kidney disease, or end stage renal disease; D63.1 Anemia in chronic kidney disease; I48.91 Unspecified atrial fibrillation; E11.22 Type 2 diabetes mellitus with diabetic chronic kidney disease; E78.00 Pure hypercholesterolemia, unspecified; R55 Syncope and collapse; Z20.822 Contact with and (suspected) exposure to COVID-19; E78.5 Hyperlipidemia, unspecified; I50.9 Heart failure, unspecified; Z79.01 Long term (current) use of anticoagulants; Z79.84 Long term (current) use of oral hypoglycemic drugs; Z79.899 Other long term (current) drug therapy; Z82.49 Family history of ischemic heart disease and other diseases of the circulatory system; Z83.3 Family history of diabetes mellitus; Z86.73 Personal history of transient ischemic attack (TIA), and cerebral infarction without residual deficits; Z99.2 Dependence on renal dialysis; Z88.0 Allergy status to penicillin; Z91.041 Radiographic dye allergy status; K66.8 Other specified disorders of peritoneum
CPT/HCPCS: 36415; 70450; 70551; 71045; 72125; 74176; 80053; 80202; 82550; 82565; 82607; 82746; 83605; 83735; 84443; 84484; 85025; 87040; 87081; 87426; 90935; 93005; 93886; 95819; 96365; 96366; G0378; J7060